=== PATIENT | male | born 1990 | race Asian ===

== ENCOUNTER 2017-10-07 18:58 | Emergency (ER) | payer OTHER ==
[2017-10-07 19:30] VITALS: BP 153/89
--- NOTE | 2017-10-07 19:45 | ED ---
Throat Pain/Nasal Congestion - HPI Summary HPI Summary: 27-year-old male presents to sore throat for the past day. He states he was with a friend who has diagnosis strep. He states he is on an immunomodular for psoriasis. He is concerned that he is immunocompromised and will get strep. He denies any fevers. He denies any sinus congestion. No cough. no Belly pain. No nausea and no vomiting. No fatigue. <Kasandra Martínez - Last Filed: 10/07/17 20:01> <Jorge Henriquez - Last Filed: 10/07/17 21:03> - History of Current Complaint Chief Complaint: UCRespiratory Time Seen by Provider: 10/07/17 19:35 - Allergies/Home Medications Allergies/Adverse Reactions: Allergies Allergy/AdvReac Type Severity Reaction Status Date / Time No Known Allergies Allergy Verified 10/07/17 19:30 Home Medications: Home Medications Dextroamphetamine/Amphetamine [Adderall 10 mg-] 10 mg PO DAILY 10/07/17 [ History Confirmed 10/07/17] Lisdexamfetamine (NF) [Vyvanse (NF)] 30 mg PO DAILY 10/07/17 [History Confirmed 10/07/17] Secukinumab [Cosentyx Pen (2 Pens)] 150 mg INJ MONTHLY 10/07/17 [History Confirmed 10/07/17] PMH/Surg Hx/FS Hx/Imm Hx Endocrine/Hematology History: Reports: Other Endocrine/Hematological Disorders - psoarsis Denies: Hx Anticoagulant Therapy Respiratory History: Denies: Hx Asthma Infectious Disease History: No Infectious Disease History: Denies: Traveled Outside the [place] in Last 30 Days - Family History Known Family History: Negative: Diabetes - Social History Alcohol Use: Rare Substance Use Type: Reports: None Smoking Status (MU): Never Smoked Tobacco <Kasandra Martínez - Last Filed: 10/07/17 20:01> Review of Systems Negative: Fever Positive: Sore Throat Negative: Chest Pain Negative: Shortness Of Breath All Other Systems Reviewed And Are Negative: Yes <Kasandra Martínez - Last Filed: 10/07/17 20:01> Physical Exam Triage Information Reviewed: Yes Vital Signs On Initial Exam: Initial Vitals Temp Pulse Resp BP Pulse Ox 98.7 F 93 18 153/89 99 10/07/17 19:24 06/14/18 19:24 10/07/17 19:24 10/07/17 19:24 10/07/17 19:24 Vital Signs Reviewed: Yes Appearance: Positive: Well-Appearing Skin: Positive: Warm, Dry Head/Face: Positive: Normal Head/Face Inspection Eyes: Positive: Normal, EOMI, CAS, Conjunctiva Clear ENT: Positive: Pharyngeal erythema, TMs normal, Other - soft palate symmetric. Negative: Tonsillar swelling, Tonsillar exudate, Trismus, Muffled voice Neck: Positive: Supple, Nontender, No Lymphadenopathy Respiratory/Lung Sounds: Positive: Clear to Auscultation, Breath Sounds Present Cardiovascular: Positive: Normal, RRR Abdomen Description: Positive: Nontender, Soft Bowel Sounds: Positive: Present Musculoskeletal: Positive: Normal Neurological: Positive: Normal Psychiatric: Positive: Normal <Kasandra Martínez - Last Filed: 10/07/17 20:01> Vital Signs On Initial Exam: Initial Vitals Temp Pulse Resp BP Pulse Ox 98.7 F 93 18 153/89 99 10/07/17 19:24 10/07/17 19:24 10/07/17 19:24 10/07/17 19:24 10/07/17 19:24 <Jorge Henriquez - Last Filed: 10/07/17 21:03> Diagnostics - Vital Signs Vital Signs Temp Pulse Resp BP Pulse Ox 10/07/17 19:24 98.7 F 93 18 153/89 99 <Kasandra Martínez - Last Filed: 10/07/17 20:01> - Vital Signs Vital Signs Temp Pulse Resp BP Pulse Ox 10/07/17 19:24 98.7 F 93 18 153/89 99 - Laboratory Lab Results: Lab Results 10/07/17 Range/Units 19:38 Group A Strep Rapid Negative (Negative) Lab Statement: Any lab studies that have been ordered have been reviewed, and results considered in the medical decision making process. <Jorge Henriquez - Last Filed: 10/07/17 21:03> EENT Course/Dx - Course Course Of Treatment: 27-year-old male presents to sore throat for the past day. He states he was with a friend who has diagnosis strep. He states he is on an immunomodular for psoriasis. He is concerned that he is immunocompromised and will get strep. He denies any fevers. He denies any sinus congestion. No cough. no Belly pain. No nausea and no vomiting. No fatigue. Pharynx erythematous. no tonsillar swelling. Soft palate symmetric. Uvula midline. Strep negative. with being immunocompromised exposed to strep will treat with pcn. will have est care with primary to follow up as blood pressure is elevated at this visit. patient understand and agrees with plan. - Differential Diagnoses Differential Diagnoses: Pharyngitis, Tonsilitis, URI/Bronchitis <Kasandra Martínez - Last Filed: 10/07/17 20:01> <Jorge Henriquez - Last Filed: 10/07/17 21:03> - Diagnoses Provider Diagnoses: Pharyngitis, Elevated blood pressure reading Discharge - Sign-Out/Discharge Documenting (check all that apply): Discharge/Admit/Transfer - Billing Disposition and Condition Condition: GOOD Disposition: Home <Kasandra Martínez - Last Filed: 10/07/17 20:01> - Billing Disposition and Condition Condition: GOOD Disposition: Home <Jorge Henriquez - Last Filed: 10/07/17 21:03> - Discharge Plan Condition: Good Disposition: HOME Prescriptions: Penicillin VK TAB* [Penicillin VK 250 mg Tab*] 250 mg PO QID #28 tab Patient Education Materials: Pharyngitis (ED) Referrals: No Primary Care Phys,NOPCP [Primary Care Provider] - Additional Instructions: take penicillin four times a day for 7 days due to strept exposure and being immunocompromised Take tyenlol or ibuprofen every 6 hours for pain Establish care with primary to follow up with as blood pressure is elevated at this visit Return to if develop any new or worsening symptoms Per institutional requirements, I have reviewed the chart, however, I was not consulted specifically or made aware of this patient by the above midlevel provider. I did not personally evaluate, interact with , or disposition this patient.
== END 2017-10-07 20:06 | disposition home or self-care (01) ==
LOC: UCEAST 18:58
DX: J02.9 Acute pharyngitis, unspecified (principal); R03.0 Elevated blood-pressure reading, without diagnosis of hypertension; L40.9 Psoriasis, unspecified
CPT/HCPCS: 87651; 99202; G0463